=== PATIENT | female | born 1990 | race Caucasian/White ===

== ENCOUNTER 2017-07-08 04:35 | Emergency (ER) | payer MEDICAID ==
[~2017-07-08] VITALS: Ht 157.5 cm; Wt 81.6 kg
[2017-07-08] MEDS ORDERED: LORazepam 2 MG/ML VIAL ONE (04:41)
[2017-07-08] MEDS: NACL 0.9% 1,000 ML IV ONE ×2 (04:45→06:00)
[2017-07-08] MEDS: LORazepam 2 MG/ML VIAL IVP ONE ×2 (04:45→05:56)
[2017-07-08 04:53] VITALS: BP 130/79
[2017-07-08 04:56] LABS: BASOPHILS # (AUTO) 0.1 K/uL (0.00-0.22); BASOPHILS % (AUTO) 0.5 % (0.0-2.0); EOSINOPHILS # (AUTO) 0.1 K/uL (0-0.4); EOSINOPHILS % (AUTO) 0.4 % (0.0-4.0); HEMATOCRIT 42.1 % (36-48); HEMOGLOBIN 13.7 g/dL (12.0-16.0); LYMPHOCYTES # (AUTO) 2.6 K/uL (2.5-16.5); LYMPHOCYTES % (AUTO) 15.5 % (20.5-51.1); MEAN CORPUSCULAR HEMOGLOBIN 26 pg (27-31); MEAN CORPUSCULAR HGB CONC 33 g/dL (33-37); MEAN CORPUSCULAR VOLUME 79.7 fL (80-94); MONOCYTES # (AUTO) 1.3 K/uL (0.8-1.0); MONOCYTES % (AUTO) 7.5 % (1.7-9.3); NEUTROPHILS # (AUTO) 12.8 K/uL (1.8-7.7); NEUTROPHILS % (AUTO) 76.1 % (42.2-75.2); PLATELET COUNT (AUTO) 301 K/uL (140-450); RED BLOOD CELL COUNT(AUTO) 5.28 MIL/uL (4.20-5.40); RED CELL DISTRIBUTION WIDTH 16.4 % (11.6-13.7); WHITE BLOOD COUNT (AUTO) 16.7 K/uL (4.8-10.8)
[2017-07-08 05:30] LABS: ALBUMIN 3.9 g/dL (3.4-5.0); ANION GAP 14.9 (8-16); ASPARTATE AMINOTRANSFERASE 33 U/L (15-37); CARBON DIOXIDE 26.2 mmol/L (21-32); CHLORIDE 100 mmol/L (98-107); CREATININE 0.9 mg/dL (0.6-1.3); GFR ARICAN-AMERICAN 97 mL/min (>90); GLUCOSE 96 mg/dL (74-106); POTASSIUM 4.1 mmol/L (3.5-5.1); SODIUM SERUM 137 mmol/L (136-145); TOTAL BILIRUBIN 0.3 mg/dL (0.0-1.0); UREA NITROGEN, BLOOD 12 mg/dL (7-18)
[2017-07-08 05:36] LABS: ACETAMINOPHEN < 0.5 ug/ml (10-30); SALICYLATE < 2.8 mg/dL (2.8-20.0)
[2017-07-08 06:09] LABS: BARBITURATE, URINE NEG. ng/ml (NEG <=200); BENZODIAZEPINE, URINE NEG. ng/mL (NEG <=200); CANNABINOID, URINE NEG. ng/mL (NEG <=50); COCAINE, URINE NEG. ng/mL (NEG <=300); OPIATE, URINE NEG. ng/mL (NEG <=2000); PHENCYCLIDINE SCREEN,URINE NEG. ng/mL (NEG <=25)
[2017-07-08 06:50] VITALS: BP 123/82
== END 2017-07-08 06:50 | disposition home or self-care (01) ==
LOC: MED 04:35
DX: F15.10 Other stimulant abuse, uncomplicated (principal); R03.0 Elevated blood-pressure reading, without diagnosis of hypertension
CPT/HCPCS: 36415; 80053; 80305; 85025; 93005; 96361; 96374; 96376; 99285; C1758; G0480; G0482; J2060

== ENCOUNTER 2019-01-19 12:22 | Emergency (ER) | payer OTHER ==
[~2019-01-19] VITALS: Ht 154.9 cm; Wt 72.6 kg
[2019-01-19 12:31] VITALS: BP 123/101
--- NOTE | 2019-01-19 12:38 | NUR ---
28/F TO ED FOR OKAY TO BOOK. MEDICAL CLEARANCE NEEDED DUE TO ELEVATED HR AT FACILITY. HR AT THIS TIME 124, HYPERTENSIVE AT 128/101. DENIES ANY MEDICAL COMPLAINT.
[2019-01-19] MEDS ORDERED: LORazepam 1 MG TAB PO ONE (13:15)
--- NOTE | 2019-01-19 13:58 | NUR ---
PT HR 127. LEONORD MADE AWARE.
--- NOTE | 2019-01-19 14:40 | NUR ---
RN TOOK MANUAL RADIAL PULSE 119. ERMD MADE AWARE
--- NOTE | 2019-01-19 14:52 | NUR ---
PATIENT BIB [employer]. PATIENT EXAMINED BY DR. MEJIA. PATIENT MEDICALLY CLEARED AND RELEASED IN CUSTODY IN STABLE CONDITION. ORIGINAL PRE-BOOK FORM GIVEN TO OFFICER LAKEISHA TADEO #[id number].
[2019-01-19 14:57] VITALS: BP 144/96
== END 2019-01-19 14:52 ==
LOC: MED 12:22
DX: R00.0 Tachycardia, unspecified (principal); R03.0 Elevated blood-pressure reading, without diagnosis of hypertension; F10.10 Alcohol abuse, uncomplicated; Y90.9 Presence of alcohol in blood, level not specified; Z02.89 Encounter for other administrative examinations
CPT/HCPCS: 99283

== ENCOUNTER 2021-07-12 23:06 | Inpatient (IN) | payer OTHER ==
[~2021-07-12] VITALS: Ht 157.5 cm; Wt 60.9 kg
[2021-07-12 23:08] VITALS: BP 125/88
[2021-07-12] MEDS ORDERED: INTUBATION KIT MC ONE (23:19)
--- NOTE | 2021-07-12 23:24 | NUR ---
ERMD AND RT BEDSIDE FOR INTUBATION
[2021-07-12] MEDS ORDERED: ETOMIDATE 20 MG/10 ML VIAL IVP ONE (23:30)
[2021-07-12] MEDS ORDERED: NACL 0.9% 1,000 ML IV ONE (23:30)
[2021-07-12] MEDS ORDERED: SUCCINYLCHOLINE CHLORIDE 200 MG/10 ML VIAL IVP ONE (23:30)
[2021-07-12] MEDS ORDERED: PROPOFOL 200 MG/20 ML VIAL IV ONE ×2 (23:30→23:40)
[2021-07-12 23:39] LABS: BASOPHILS # (AUTO) 0.1 K/uL (0.00-0.22); BASOPHILS % (AUTO) 0.6 % (0.0-2.0); EOSINOPHILS # (AUTO) 0.1 K/uL (0-0.4); EOSINOPHILS % (AUTO) 0.6 % (0.0-4.0); HEMATOCRIT 43.7 % (36-48); HEMOGLOBIN 14.3 g/dL (12.0-16.0); LYMPHOCYTES # (AUTO) 2.5 K/uL (2.5-16.5); LYMPHOCYTES % (AUTO) 22.6 % (20.5-51.1); MEAN CORPUSCULAR HEMOGLOBIN 26 pg (27-31); MEAN CORPUSCULAR HGB CONC 33 g/dL (33-37); MEAN CORPUSCULAR VOLUME 79.4 fL (80-94); MONOCYTES # (AUTO) 0.8 K/uL (0.8-1.0); MONOCYTES % (AUTO) 7.3 % (1.7-9.3); NEUTROPHILS # (AUTO) 7.8 K/uL (1.8-7.7); NEUTROPHILS % (AUTO) 68.9 % (42.2-75.2); PLATELET COUNT (AUTO) 249 K/uL (140-450); RED CELL DISTRIBUTION WIDTH 15.3 % (11.6-13.7); WHITE BLOOD COUNT (AUTO) 11.3 K/uL (4.8-10.8)
[2021-07-12] MEDS ORDERED: PROPOFOL 1000 MG/100 ML PREMIX 100 ML IV ONE (23:41)
--- NOTE | 2021-07-12 23:52 | NUR ---
CALLED TO BEDSIDE FOR INTUBATION ASSIST PT WAS INTUBATED W/ 7.5 ETT SECURED @ 23CM BILAT BS, COLOR CHANGE ON EZ CAP, CONDESATION PRESENT IN ETT, AND CXR OBTAINED PENDING INTERP FOR TUBE PLACEMENT PT PLACED ON AC/VC 400 +[address] NO PEEP AT THIS TIME
[2021-07-12 23:58] VITALS: BP 128/83
[2021-07-13] VITALS (17 sets, daily range): BP systolic 128–179; BP diastolic 48–91
[2021-07-13 00:04] LABS: ALBUMIN 3.5 g/dL (3.4-5.0); ANION GAP 16.3 (8-16); CARBON DIOXIDE 23.2 mmol/L (21-32); CREATININE 0.4 mg/dL (0.6-1.3); POTASSIUM 4.5 mmol/L (3.5-5.1); TOTAL BILIRUBIN 0.1 mg/dL (0.0-1.0)
--- NOTE | 2021-07-13 00:06 | NUR ---
# 16 FR Easley catheter with 10 ml utilizing sterile technique. Immediate return of 25 ml light yellow, clear, no foul odor of urine noted. Bedside drainage bag placed below level of bladder. Urine sample collected and sent to lab. Pt tolerated procedure well.
[2021-07-13] MEDS ORDERED: FAMOTIDINE 20 MG/2 ML VIAL IVP ONE (00:10)
--- NOTE | 2021-07-13 00:19 | NUR ---
to CT with amado, rn, rt, Acls transport.
[2021-07-13] MEDS ORDERED: MIDAZOLAM MDV 50 MG in NACL 0.9% 40 ML IV ONE (01:00)
[2021-07-13 01:07] LABS: BARBITURATE, URINE NEGATIVE ng/ml (NEG <=200); BENZODIAZEPINE, URINE NEGATIVE ng/mL (NEG <=200); CANNABINOID, URINE NEGATIVE ng/mL (NEG <=50); COCAINE, URINE NEGATIVE ng/mL (NEG <=300); OPIATE, URINE NEGATIVE ng/mL (NEG <=2000); PHENCYCLIDINE SCREEN,URINE NEGATIVE ng/mL (NEG <=25)
--- NOTE | 2021-07-13 01:09 | NUR ---
PT TRANSPORTED TO CT AND BACK TO ED 7 W/ NO COMPLICATIONS OR ADVERSE EVENTS PT TOLERATED TRANSPORT WELL VENT PLUGGED INTO RED OUTLET W/ ALARMS ON AND AUDIBLE AMBU WAS REPLACED AT BEDSIDE ABG PERFORMED UPON ARRIVAL BACK TO ED AND RESULTS WERE PRESENTED TO DR FIO2 WAS TITRATED TO 28% PT TOLERATING WELL AT THIS TIME W/ SPO2 100% 5 POST TITRATION WILL CONTINUE TO MONITOR AND TITRATE TOLERATED
[2021-07-13] MEDS ORDERED: PROPOFOL 200 MG/20 ML VIAL IV ONE (01:20)
[2021-07-13] MEDS ORDERED: PROPOFOL 1000 MG/100 ML PREMIX 100 ML IV ONE ×4 (01:25→11:59)
[2021-07-13] MEDS ORDERED: MIDAZOLAM MDV 50 MG/10 ML VIAL IV ONE ×2 (01:40→17:50)
--- NOTE | 2021-07-13 01:43 | NUR ---
PT BEGAN TO AWAKE, TRIED TO PULL OUT ET TUBE. PT CALMED VERBALLY, PROPOFOL INCREASED TO 20MCG/KG/MIN.
[2021-07-13] MEDS ORDERED: FAMOTIDINE 20 MG/2 ML VIAL ONE ×2 (02:11→02:12)
[2021-07-13] MEDS ORDERED: ONDANSETRON 4 MG/2 ML VIAL IVP PRN ×2 (04:10→14:55)
[2021-07-13] MEDS ORDERED: ACETAMINOPHEN 325 MG TAB PO PRN (04:10)
--- NOTE | 2021-07-13 04:37 | NUR ---
PTS MOTHER GAVE VERBAL PERMISSION TO HAVE PTS BROTHER ACCESS TO HER INFORMATION. BROTHERS NAME IS VEL. HIS NUMBER IS [phone]
--- NOTE | 2021-07-13 05:45 | NUR ---
PT TRANSPORTED FROM ED TO ICU 5 WITH NO ADVERSE EVENTS PT TOLERATED TRANSPORT WELL VENT PLUGGED INTO RED OUTLET WITH ALARMS ON AND AUDIBLE AMBU PLACED AT BEDSIDE WILL CONTINUE TOP MONITOR
--- NOTE | 2021-07-13 06:00 | NUR ---
Patient will be admitted to [facility]. Admited to ICU. Will go to room 5. Belongings list completed. Report to MILLICENT.
--- NOTE | 2021-07-13 06:30 | NUR ---
Paged to inform of patient's condition. Per ED patient had EBL from OG tube @ 700cc. Patient abdoment soft, to palpation. Patient noted with tachycardia and fever. Paged to clarify diet order, and to request prn rx for fever of 100.3. Patient cooling measures in place. Patient remains on EET and on Propofol and Versed drip. Bed locked and in lowest position. patient remains on telemetry monitor.
--- NOTE | 2021-07-13 06:36 | NUR ---
PATIENT HAS BEEN SCREENED AND CATEGORIZED LOW NUTRITION RISK. PATIENT WILL BE SEEN WITHIN 7 DAYS OF ADMISSION. 07/20/21 GENNY DUNBAR MS, RDN
--- NOTE | 2021-07-13 07:20 | NUR ---
REPORT RECEIVED FROM MINE INSPECTOR RN.
--- NOTE | 2021-07-13 07:45 | NUR ---
PATIENT SPONTANEOUSLY OPENED EYES. FOLLOWED COMMANDS AND SQUEEZED TO COMMAND WITH LEFT HAND. PUPILS 4MM AND REACTIVE TO LIGHT BILATERALLY. SKIN INTACT. SMALL AREA OF ECCYMOTIC SCRATCHES ON LEFT HIP. HEART SOUNDS REGULAR. MONITOR WITH ST AT 125. PULSES BOUNDING. DP AND PT PALAPABLE WITH NO EDEMA NOTED. NECK MASS NOTED MIDLINE TO SLIGHT RIGHT FIRM. ANTERIOR/LATERAL LUNG SOUNDS CLEAR. BILATERALLY. SAO2 99%. ETT TO VENT AC/VC FIO2 .24/ VT 400/ RATE 18/ PEEP 0. ORAL GASTRIC TUBE IN PLACE. FLEX OF COFFEE GROUND COLORED FLUID NOTED IN TUBE. ACTIVE BOWEL SOUNDS. ABDOMEN SOFT. OG PLACED TO LIS WITH SMALL AMOUNT OF COFFEE GROUND DRAINAGE NOTED. HUDDLESTON IN PLACE WITH CLEAR YELLOW URINE. PROPOFOL AT 50MCG/KG/MIN TO LEFT HAND, VERSED AT 6MG/HR TO RIGHT HAND.
--- NOTE | 2021-07-13 08:24 | NUR ---
PATIENT HAS BEEN SCREENED AND CATEGORIZED HIGH NUTRITION RISK D/T NEWLY RECEIVED FNS REFERRAL. PATIENT WILL BE SEEN WITHIN 1-2 DAYS OF ADMISSION. 07/13/21-07/14/21 GENNY DUNBAR MS, RDN
--- NOTE | 2021-07-13 09:00 | NUR ---
PATIENT AWAKE, ANXIOUS ATTEMPTING TO PULL AT LINES. VERSED INCREASED TO 8MG/HR.
--- NOTE | 2021-07-13 09:30 | NUR ---
RIGHT HAND IV DISLODGED. #20 GAUGE STARTED IN RIGHT FOREARM WITHOUT DIFFICULTY.
--- NOTE | 2021-07-13 10:00 | NUR ---
PATIENT AWAKE. REQUESTED BACK OF VERSED FROM PHARMACY. PATIENT AWAKE, KICKING, ATTEMPTING TO TALK. ATTEMPTED TO PULL AT ETT. DR. MAHMOOD CALLED AND ORDER FOR FENTANYL RECEIVED. REQUESTED CONSULT FOR DR. HURLEY. DR. HURLEY PAGED.
[2021-07-13] MEDS: MORPHINE SULFATE 2 MG/ML SYR IVP PRN (10:24)
--- NOTE | 2021-07-13 10:30 | NUR ---
ORDER RECEIVED FOR IVF'S NS AT 125ML/HR. NS STARTED TO RIGHT FA.
[2021-07-13] MEDS: NACL 0.9% 1,000 ML IV SCH (11:19)
[2021-07-13] MEDS ORDERED: fentaNYL citrate 1 MG in NACL 0.9% 80 ML IV PRN (11:40)
--- NOTE | 2021-07-13 12:03 | NUR ---
(07/13/21) RD INITIAL ASSESSMENT COMPLETED PLEASE REFER TO NUTRITION ASSESSMENT UNDER CARE ACTIVITY FOR ESTIMATED NUTRITIONAL NEEDS. RD RECOMMENDATIONS: 1. CONTINUE NPO MEDICALLY APPROPRIATE. 2. IF PT IS ABLE TO START PO DIET, START REGULAR DIET. 3. IF PT IS NOT ABLE TO START PO DIET, CONSIDER ALTERNATE ROUTE OF NUTRITION SUCH TF OR PPN/TPN. 3. CONSULT RDN PRN. 4. RD WILL F/U 2-3 DAYS; HIGH RISK. GENNY DUNBAR MS, RDN
--- NOTE | 2021-07-13 12:30 | NUR ---
DR. HURLEY AT BEDSIDE. SPOKE WITH PATIENTS FATHER USING COMMUNITY SERVICE AIDE TUCK POINTER. FATHER STATED PATIENT HAS BEEN TALKING AND RESPONDING TO VOICES. PATIENT WAS TO SEE OUTPATIENT PSYCH BUT DID NOT COMPLETE THIS VISIT. STATED PATIENT WAS IN REHAB IN [facility]. PATIENT OPENS HER EYES TO VERBAL STIMULI. CALM AT THIS TIME.
[2021-07-13] MEDS ORDERED: MULTIVITAMIN-12 10 ML, FOLIC ACID 1 MG in DEXTROSE 5% 1,000 ML IV ONE (15:05)
[2021-07-13] MEDS ORDERED: THIAMINE 200 MG/2 ML VIAL IM ONE (15:05)
[2021-07-13] MEDS ORDERED: MAG SULF 2000 MG/WATER PREMIX 50 ML IV ONE (15:05)
[2021-07-13] MEDS: PANTOPRAZOLE 40 MG INJ VIAL IVP SCH (15:51)
--- NOTE | 2021-07-13 16:00 | NUR ---
#18 GAUGE PLACED IN LEFT FA WITHOUT DIFFICULTY. VITAMIN INFUSION STARTED AT 100ML/HR. ANTIBIOTICS STARTED. FENTANYL STARTED AT .5MCG/KG/HR.
--- NOTE | 2021-07-13 16:07 | NUR ---
SEDATED RESTING WELL BREATH SOUNDS DIFFUSED RHONCHI BILATERAL ENDOTRACHEAL SUCTION FOR MODERATE HICK WITH BLOOD TINGE SECRETIONS AIRWAY PATENT; SPECIMEN COLLECTED FOR VAP PROTOCOL; SAMPLE FORWARDED TO LAB
[2021-07-13 16:12] LABS: FREE T4 (FREE THYROXINE) 4.71 ng/dL (0.76-1.46); THYROID STIMULATING HORMONE < 0.01 uIU/mL (0.34-3.74)
[2021-07-13] MEDS: MIDAZOLAM MDV 50 MG in NACL 0.9% 40 ML IV PRN (17:57)
--- NOTE | 2021-07-13 19:20 | NUR ---
REPORT GIVEN TO LAKESHA SMITH.
--- NOTE | 2021-07-13 19:50 | NUR ---
PATIENT CURRENTLY SEDATED WITH FENTANYL, PROPOFOL, AND VERSED. INTUBATED. PATIENT HOT TO THE TOUCH, TOOK A TEMPERATURE ORALLY WITH 100.9 FEVER. PROVIDED COOLING MEASURES WITH WET RAGS, BLANKET TAKEN OFF, AND WILL PROVIDE TYLENOL VIA OG TUBE. FLUSHABLE OF 10ML SALINE THROUGH ALL IV SITES- NO REDNESS, SWELLING, INFILTRATION, PATENT TUBING.
[2021-07-13] MEDS: CLONIDINE HYDROCHLORIDE 0.1 MG TAB PO SCH (21:16)
[2021-07-13] MEDS: PROPOFOL 1000 MG/100 ML PREMIX 100 ML IV PRN (21:22)
[2021-07-14] VITALS (19 sets, daily range): BP systolic 106–163; BP diastolic 54–93
[2021-07-14] MEDS ORDERED: MIDAZOLAM MDV 50 MG/10 ML VIAL IV ONE (00:52)
--- NOTE | 2021-07-14 01:22 | NUR ---
PROVIDED COOLING MEASURES ON PATIENT- COLD RAG ON FOREHEAD. PATIENT TOLERATED WELL.
[2021-07-14] MEDS: MIDAZOLAM MDV 50 MG in NACL 0.9% 40 ML IV PRN (01:24)
[2021-07-14] MEDS: NACL 0.9% 1,000 ML IV SCH ×4 (02:09→19:41)
[2021-07-14] MEDS: PROPOFOL 1000 MG/100 ML PREMIX 100 ML IV PRN ×2 (02:10→21:46)
--- NOTE | 2021-07-14 02:17 | NUR ---
PATIENT SUCTIONED THROUGH THE MOUTH- TOLERATED WELL.
--- NOTE | 2021-07-14 04:00 | NUR ---
CHANGED EDDIE PADS FOR PATIENT AND PROVIDED ORAL CARE- PATIENT TOLERATED WELL.
[2021-07-14] MEDS: CLONIDINE HYDROCHLORIDE 0.1 MG TAB PO SCH ×3 (05:06→21:18)
[2021-07-14 05:40] LABS: ALBUMIN 2.5 g/dL (3.4-5.0); ANION GAP 12.2 (8-16); CREATININE 0.4 mg/dL (0.6-1.3); PHOSPHORUS 4.3 mg/dL (2.5-4.9); POTASSIUM 3.2 mmol/L (3.5-5.1); TOTAL BILIRUBIN 0.7 mg/dL (0.0-1.0)
[2021-07-14 05:53] LABS: EOSINOPHILS # (AUTO) 0.1 K/uL (0-0.4); EOSINOPHILS % (AUTO) 0.5 % (0.0-4.0); HEMATOCRIT 34.3 % (36-48); HEMOGLOBIN 11.2 g/dL (12.0-16.0); LYMPHOCYTES # (AUTO) 2.1 K/uL (2.5-16.5); LYMPHOCYTES % (AUTO) 13.9 % (20.5-51.1); MEAN CORPUSCULAR HEMOGLOBIN 27 pg (27-31); MEAN CORPUSCULAR HGB CONC 33 g/dL (33-37); MEAN CORPUSCULAR VOLUME 81.6 fL (80-94); MONOCYTES # (AUTO) 2.5 K/uL (0.8-1.0); MONOCYTES % (AUTO) 16.9 % (1.7-9.3); NEUTROPHILS # (AUTO) 10.3 K/uL (1.8-7.7); NEUTROPHILS % (AUTO) 68.7 % (42.2-75.2); PLATELET COUNT (AUTO) 187 K/uL (140-450); RED BLOOD CELL COUNT(AUTO) 4.21 MIL/uL (4.20-5.40)
--- NOTE | 2021-07-14 07:19 | NUR ---
RECEIVED REPORT FROM LAKESHA SMITH. TRANSFER OF CARE AT THIS TIME.
--- NOTE | 2021-07-14 07:36 | NUR ---
PT IN BED WITH HOB ELEVATED, SEDATED RASS-3. ET TUBE TO VENT SETTINGS AC VC VT 400 RATE 18 PEEP 0 FIO2 @ 24%. SATURATING WELL, BREATHING EVEN AND UNLABORED. SINUS TACH ON MONITOR. HUDDLESTON CATHETER DRAINING TO BSD. IV TO L AC 18G LUMEN INTACT AND INFUSING PROPOFOL @ 55MCG/KG/MIN. IV TO R FA 20G LUMEN INTACT AND INFUSING NS @ TKO. IV TO LEFT HAND 20G SL. PT KEPT CLEAN DRY AND COMFORTABLE. SAFETY PRECAUTIONS IN PLACE.
[2021-07-14] MEDS: PANTOPRAZOLE 40 MG INJ VIAL IVP SCH (10:51)
[2021-07-14] MEDS ORDERED: POTASSIUM CHLORIDE 20% 40 MEQ/15 ML UDC NG ONE (11:00)
--- NOTE | 2021-07-14 11:06 | NUR ---
DR. HURLEY AT PT BEDSIDE FOR FURTHER EVALUATION. PRECEDEX TO BE STARTED AFTER WEANING PT DOWN FROM PROPOFOL, FENTANYL, AND VERSED. PT TO BE ON C-PAP TRIALS AND PRECEDEX STARTED.
--- NOTE | 2021-07-14 11:13 | NUR ---
PT MOTHER AT PT BEDSIDE, PT CARE EXPLAINED AT THIS TIME.
[2021-07-14] MEDS: methIMAzole 5 MG TAB NG SCH ×2 (12:43→16:38)
[2021-07-14] MEDS ORDERED: MIDAZOLAM MDV 100 MG in NACL 0.9% 80 ML IV PRN (13:15)
--- NOTE | 2021-07-14 13:30 | NUR ---
RECEIVED ON A [employer] R860 VENTILATOR PLUGGED INTO RED OUTLET TOLERATING WELL WITHOUT COMPLICATIONS NOTED TO ENDOTRACHEAL TUBE #7.5 SECURED AT 23cm TEETH/GUM LINE WITH AN ANCHOR FAST CUFF PRESSURE CHECKED NOTED AMBU BAG AT BEDSIDE SEDATED RESTING WELL GOOD CHEST RISE ENDOTRACHEAL TUBE SUCTION FOR LARGE THICK YELLOW SECRETIONS AIRWAY PATENT
--- NOTE | 2021-07-14 15:50 | NUR ---
NO APPARENT DISTRESS NOTED EQUAL CHEST RISE GOOD AERATION THROUGHOUT BILATERAL LUNG MCINTOSH AIRWAY PATENT
[2021-07-14] MEDS: DEXMEDETOMIDINE HCL 400 MCG in NACL 0.9% 96 ML IV PRN (16:43)
--- NOTE | 2021-07-14 19:30 | NUR ---
GAVE REPORT TO ARNEL, ENGINE ROOM OPERATOR. TRANSFER OF CARE AT THIS TIME.
[2021-07-14] MEDS: MORPHINE SULFATE 2 MG/ML SYR IVP PRN (21:19)
[2021-07-15] VITALS (20 sets, daily range): BP systolic 102–141; BP diastolic 50–77
--- NOTE | 2021-07-15 00:38 | NUR ---
PATIENT SEDATED ON PROPOFOL AT 28 MCG 28 ML HOUR AND ON VERSED 2.5 MG, AND PRECEDEX 0.2 MCG /KG/HOUR. NS INFUSING AT 125 HOUR. PATIENT IS WITH ET-TUBE AC/VC RATE 18, TV 400, FI02 24%, AND PEEP OFF. SAT 99% LUNGS DIMINISH TEMP 98.4 WAS HAVING SOME WITH DRAWAL WAS GIVEN MORPHINE 2 MG IVP AT 2119 FATHER AT BED SIDE. PATIENT HAS A F/C DRAINING 200CC AROUND 2200. PATIENT HAS WRIST RESTRAINTS ON BOTH WRIST. NO DISTRESS NOTED BOTH EYES PINPOINT.
[2021-07-15] MEDS: NACL 0.9% 1,000 ML IV SCH ×3 (04:24→21:45)
[2021-07-15] MEDS: PROPOFOL 1000 MG/100 ML PREMIX 100 ML IV PRN ×3 (04:29→20:30)
[2021-07-15] MEDS: CLONIDINE HYDROCHLORIDE 0.1 MG TAB PO SCH ×3 (05:00→21:00)
[2021-07-15] MEDS: MORPHINE SULFATE 2 MG/ML SYR IVP PRN (05:30)
--- NOTE | 2021-07-15 07:26 | NUR ---
RECEIVED REPORT FROM IRIS, COMPUTER OPERATIONS SPECIALIST. TRANSFER OF CARE A THIS TIME.
--- NOTE | 2021-07-15 07:45 | NUR ---
PT IN BED WITH HOB ELEVATED, SEDATED RASS-3. ET TUBE TO VENT SETTINGS AC VC VT 400 RATE 18 PEEP 0 FIO2 @ 24%. SATURATING WELL, BREATHING EVEN AND UNLABORED. NORMAL SINUS RYTHYM ON MONITOR. HUDDLESTON CATHETER DRAINING TO BSD. IV TO L AC 18G LUMEN INTACT AND INFUSING PROPOFOL @ 28MCG/KG/MIN. IV TO R FA 20G LUMEN INTACT AND INFUSING VERSED 2.5MG/HR, AND PRECEDEX 0.2MCG/KG/HR, NS @ 125. IV TO LEFT HAND 20G SL. PT KEPT CLEAN DRY AND COMFORTABLE. SAFETY PRECAUTIONS IN PLACE.
[2021-07-15] MEDS: methIMAzole 5 MG TAB NG SCH ×3 (09:33→17:15)
[2021-07-15] MEDS: PANTOPRAZOLE 40 MG INJ VIAL IVP SCH (09:34)
--- NOTE | 2021-07-15 12:44 | NUR ---
(07/15/21) RD FOLLOW UP COMPLETED PLEASE REFER TO NUTRITION PROGRESS NOTE UNDER CARE ACTIVITY FOR ESTIMATED NUTRITION NEEDS. RD RECOMMENDATIONS: 1. CONTINUE CURRENT ENTERAL FEEDING: VITAL AF 1.2 AT 50 ML/HR WITH FWF 50 Q8H (150 ML) VIA NGT. THIS PROVIDES 1200 ML TOTAL VOLUME, 1440 KCAL, 90 GM PROTEIN, AND 973 ML FREE WATER (1123 ML FREE WATER TOTAL). THIS MEETS 91% EST KCAL NEEDS AND 84% EST PROTEIN NEEDS; ADEQUATE. 2. RD WILL F/U 2-3 DAYS; HIGH RISK. GENNY DUNBAR, MS, RDN
--- NOTE | 2021-07-15 17:09 | NUR ---
PT REMAINS ON DOCUMENTED VENT SETTINGS NO CHANGES AT THIS TIME. PT SEDATED NOT IN ANY DISTRESS. VENT ALARMS REMAIN ON AND FUNCTIONING. ETT IS SECURE WITH A PATENT AIRWAY.
--- NOTE | 2021-07-15 19:43 | NUR ---
GAVE REPORT TO IRIS, SERVICE DELIVERY SUPERVISOR. TRANSFER OF CARE AT THIS TIME.
[2021-07-15] MEDS: DEXMEDETOMIDINE HCL 400 MCG in NACL 0.9% 96 ML IV PRN ×2 (20:30→23:00)
--- NOTE | 2021-07-15 22:59 | NUR ---
PATIENT SEDATED ON PROPOFOL AND PRECEDEX 1.2 MCG/KG/HR.PROPOFOL AT 24 MCG, NS AT 125 HR.PATIENTS PUPILS PINPOINT SLUGGISH. HAS OGT TUBE RECEIVING VITAL AT 30 HOUR. 2000 RESIDUAL 200CC. LUNGS DIMINISH TO LISTEN. TEMP 98.9 SINUS ON MONITOR. HAS F/C DRAINING VICK URINE.NO DISTRESS NOTED.
[2021-07-16] VITALS (22 sets, daily range): BP systolic 118–163; BP diastolic 46–96
[2021-07-16] MEDS: PROPOFOL 1000 MG/100 ML PREMIX 100 ML IV PRN ×2 (01:50→06:25)
[2021-07-16] MEDS ORDERED: DEXMEDETOMIDINE HCL 100 MCG/ML 2 ML VIAL IV ONE (03:53)
[2021-07-16] MEDS: DEXMEDETOMIDINE HCL 400 MCG in NACL 0.9% 96 ML IV PRN ×2 (05:25→22:25)
[2021-07-16] MEDS: CLONIDINE HYDROCHLORIDE 0.1 MG TAB PO SCH ×3 (05:26→21:15)
[2021-07-16 05:35] LABS: ALBUMIN 1.9 g/dL (3.4-5.0); ANION GAP 9.8 (8-16); CARBON DIOXIDE 26.6 mmol/L (21-32); CREATININE 0.2 mg/dL (0.6-1.3); MAGNESIUM 1.7 mg/dL (1.8-2.4); POTASSIUM 3.4 mmol/L (3.5-5.1); TOTAL BILIRUBIN 0.3 mg/dL (0.0-1.0)
[2021-07-16] MEDS: NACL 0.9% 1,000 ML IV SCH ×3 (05:40→11:45)
[2021-07-16 06:26] LABS: BASOPHILS % (AUTO) 0.2 % (0.0-2.0); EOSINOPHILS # (AUTO) 0.2 K/uL (0-0.4); EOSINOPHILS % (AUTO) 1.8 % (0.0-4.0); HEMATOCRIT 34.1 % (36-48); HEMOGLOBIN 11.1 g/dL (12.0-16.0); LYMPHOCYTES # (AUTO) 1.9 K/uL (2.5-16.5); LYMPHOCYTES % (AUTO) 18.7 % (20.5-51.1); MEAN CORPUSCULAR HEMOGLOBIN 26 pg (27-31); MEAN CORPUSCULAR HGB CONC 32 g/dL (33-37); MEAN CORPUSCULAR VOLUME 81.3 fL (80-94); MONOCYTES # (AUTO) 1.3 K/uL (0.8-1.0); MONOCYTES % (AUTO) 13.2 % (1.7-9.3); NEUTROPHILS # (AUTO) 6.6 K/uL (1.8-7.7); NEUTROPHILS % (AUTO) 66.1 % (42.2-75.2); PLATELET COUNT (AUTO) 208 K/uL (140-450); RED CELL DISTRIBUTION WIDTH 14.8 % (11.6-13.7)
--- NOTE | 2021-07-16 07:30 | NUR ---
REPORT RECEIVED ARNEL RN PT. HAS ETT TO VENT 24% FIO2 TV 400 O2 SAT 100% AT THE TIME IV HAS#20 ONRT ACINFUSSING PRECIDEX AT 1.2/KG/HR AND NS AT 125ML/HE . ON LEFT AC HAS# 18 INFUSING PROPOFOL AT 24MCG/HR.OGTUBE FEEDING IN PROGRESS. HUDDLESTON CATH DRAIN CLEAR YELLOW URINE.
--- NOTE | 2021-07-16 07:40 | NUR ---
RECEIVED ON A [employer] R860 VENTILATOR PLUGGED INTO RED OUTLET TOLERATING WELL WITHOUT COMPLICATIONS NOTED TO AN ENDOTRACHEAL TUBE #7.5 SECURED AT 23cm TEETH/GUM LINE WITH AN ANCHOR FAST CUFF PRESSURE CHECKED NOTED AMBU BAG AT BEDSIDE ENDOTRACHEAL TUBE SUCTION FOR MODERATE SEMI THICK PALE YELLOW SECRETIONS AIRWAY PATENT SPUTUM SPECIMEN SAMPLE OBTAINED FORWARDED TO LAB
--- NOTE | 2021-07-16 07:51 | NUR ---
SPUTUM COLLECTED FOR C/S.
[2021-07-16] MEDS: chlordiazePOXIDE 25 MG CAP PO SCH ×2 (09:00→21:00)
[2021-07-16] MEDS: methIMAzole 5 MG TAB NG SCH ×3 (09:00→13:32)
[2021-07-16] MEDS: PANTOPRAZOLE 40 MG INJ VIAL IVP SCH (09:00)
--- NOTE | 2021-07-16 09:00 | NUR ---
DR. ABRAHAM HURLEY AT BEDSIDE ASSESSING PATIENT ACCOUNT MANAGER B2B AND RN AT BEDSIDE HOLLY HURLEY: TURN OFF PROPOFOL; PRECEDEX CURRENTLY RUNNING AT 1.3mcg ADJUST NECESSARY; START CPAP TRIALS IF DOING GOOD BY 1000am EXTUBATE PATIENT; NO ABG REQUIRED ON CPAP TRIAL
--- NOTE | 2021-07-16 09:05 | NUR ---
STABLE GOOD CHEST RISE ENDOTRACHEAL SUCTION FOR LARGE THI YELLOW SECRETIONS AIRWAY PATENT; PLACED ON CPAP TRIAL NOTED; REFERENCE PHYSICAL SCIENCE PROFESSOR NOTES AT 0900; ISHA/INSULATION NOZZLEMAN NOTIFIED
--- NOTE | 2021-07-16 09:23 | NUR ---
CABLE FORMER CALLED TO BEDSIDE AT THIS TIME BY ISHA/TELE GROUT SEWER LINE REPAIRER; PATIENT PRESENTING WITH 90% SELF EXTUBATION; REMOVED ENDOTRACHEAL TUBE ALONG WITH OROGASTIC TUBE; OROPHARYNGEAL SUCTION FOR COPIOUS SEMI THICK YELLOW/HAZY SECRETIONS; PLACED ON HUMIDIFIED SUPPLEMENTAL OXYGEN AT 2 LPM VIA NC
--- NOTE | 2021-07-16 09:28 | NUR ---
CALLED DR. ABRAHAM HURLEY AT [facility] [phone] YEN/EXCHANGE TO PAGE ZAINABIONED MD RETURN PHONE NUMBER AND PATIENT INFORMATION GIVEN
--- NOTE | 2021-07-16 09:31 | NUR ---
CALL BACK FROM RA HURLEY REVIEWED PATIENT SELF EXTUBATION; LOC WITH NO SUSTAINED SHORTNESS OF BREATH; GOOD CHEST RISE; STRONG PRODUCTIVE COUGH WITH OROPHARYNGEAL SUCTIONING FOR COPIOUS THICK PALE YELLOW/HAZY SECRETIONS; IMPLEMENTATION OF SUPPLEMENTAL OXYGEN AT 2 LPM VIA NC WITH SATURATION AT 95%-96% Addendum: 07/16/21 at 1501 by Marciano Mcgovern RT ; =
--- NOTE | 2021-07-16 10:00 | NUR ---
PT MOTHER AT BED SIDE , PT REMAIN AWAKE AND CONFUSED ,GIVE SOME ICE CHIP.
--- NOTE | 2021-07-16 12:00 | NUR ---
PT, IS AWAKE AIERT AND CONFUSE AFTER EXTUBATED/
--- NOTE | 2021-07-16 12:22 | NUR ---
DC PLANN[age] YRS OLD FEMALE PATIENT WAS ADMITTED FROM HOME WITH A DX OF ALCOHOL INTOXICATION. PATIENT HAS A HX OF ASTHMA ,DRUG AND ALCOHOL ABUSE. PATIENT INTUBATED SEDATED. CXR SHOWED LEFT BASILAR DISEASE QUESTION ATELECTASIS/INFILTRATE. CT HEAD NEGATIVE. ON PROPOFOL, PRECEDEX, FENTANYL AND VERSED. IVF AND IV ABX ROCEPHIN. CONSULTED WITH CRITICAL CARE PULMO. DC PLAN PER PATIENT RESPOND TO THE TREATMENT. CM TO FOLLOW Addendum: 07/17/21 at 1233 by Shirin Rossi RN DC PLANNING: PATIENT SELF EXTUBATED ON HIGH FLOW 25L/NC FIO2 40% CONTINUE IVF AND IV ABX ROCEPHIN . DC PLAN TO DOWNGRADE TO TELE. CM TO FOLLOW
--- NOTE | 2021-07-16 19:30 | NUR ---
RECEIVED PATIENT ON BED ALERT BUT SOMEWHAT CONFUSED, TRIES TO GO DOWN FROM THE BED. VENTILATING ON 2 LITERS / S02 90%.PATIENT WAS JUST EXTUBATED TODAY IN THE DAY SHIFT ENDORSED. CARDIACSCOPE SHOWS ON SINUS RHYTHM HR 87/MIN NO ARRHYTHMIAS SEE. COMMENCINGON IV NORMAL SALINE AT 125 ML/HR VIA G20 IV CANNULA ON RIGHT ARM AND ON PRECEDEX DRIP 1.2 MCG/KG/HR. ABDOMEN IS SOFT NON TENDER, ACTIVE BOWEL SOUNDS.WITH HUDDLESTON CATH IN PLACE, DRAINING TO CLEAR YELLOW URINE OUTPUT, INTACT.
--- NOTE | 2021-07-16 19:30 | NUR ---
REPORT GIVE TO KEMAL CROWDER FOR CONTINUE DARE.
[2021-07-16] MEDS ORDERED: LORazepam 2 MG/ML VIAL IM/IVP PRN (19:40)
[2021-07-16] MEDS ORDERED: MAG SULF 2000 MG/WATER PREMIX 50 ML IV SCH (19:45)
--- NOTE | 2021-07-16 20:00 | NUR ---
WITH BOUTS OF DIARRHEA NOTED; PATIENT WAS ABLE TO SIT ON A BEDSIDE COMMODE.
--- NOTE | 2021-07-16 20:30 | NUR ---
VISITED BY THE PATIENT'S MOTHER, UPDATED ON PATIENT'S MEDICAL CONDITION.
--- NOTE | 2021-07-16 22:00 | NUR ---
O2 TITRATED TO 5LNC DUE TO DESAT LOW 80s WHILE SLEEPING SPO2 CURRENTLY 91% WILL CONTINUE TO MONITOR AND TITRATE TOLERATED
[2021-07-17] VITALS (16 sets, daily range): BP systolic 94–142; BP diastolic 56–99
[2021-07-17] MEDS: CLONIDINE HYDROCHLORIDE 0.1 MG TAB PO SCH ×3 (05:00→16:45)
[2021-07-17] MEDS ORDERED: DEXMEDETOMIDINE HCL 100 MCG/ML 2 ML VIAL IV ONE (05:30)
--- NOTE | 2021-07-17 05:30 | NUR ---
MORNING CARE DONE; KEPT CLEAN DRY AND COMFORTABLE.
[2021-07-17] MEDS: PROPOFOL 1000 MG/100 ML PREMIX 100 ML IV PRN (05:35)
--- NOTE | 2021-07-17 08:00 | NUR ---
glucose check prior to breakfast 124. soft diet tray left at bedside
--- NOTE | 2021-07-17 09:34 | NUR ---
pt finished 75% of meal tray at this time. tolerated meal well.
--- NOTE | 2021-07-17 09:50 | NUR ---
SWITCHED PT TO 5LNC PER DR ORDER FROM HIGH FLOW NC. SAT WAS 99% WHEN WE LEFT. PT WAS IN NO DISTRESS.
[2021-07-17] MEDS: PANTOPRAZOLE 40 MG INJ VIAL IVP SCH (10:15)
[2021-07-17] MEDS: methIMAzole 5 MG TAB NG SCH ×3 (10:19→17:23)
[2021-07-17] MEDS: chlordiazePOXIDE 25 MG CAP PO SCH ×2 (10:20→20:21)
--- NOTE | 2021-07-17 12:29 | NUR ---
lunch tray given at this time.
--- NOTE | 2021-07-17 13:58 | NUR ---
pt assist to bedside commode, soft bowel movement at this time.
--- NOTE | 2021-07-17 14:04 | NUR ---
psych consult with Dez Martin on teleconsult at bedside with pt at this time.
--- NOTE | 2021-07-17 14:20 | NUR ---
Dez Martin on teleconsult verbal order for zyprexa 5mg po q hs. outpatient psychiatry to follow up
--- NOTE | 2021-07-17 14:54 | NUR ---
07/17/21 RD FOLLOW UP COMPLETED PLEASE REFER TO NUTRITION ASSESSMENT UNDER CARE ACTIVITY FOR ESTIMATED NUTRITIONAL NEEDS. 1. CONTINUE SOFT DIET TOLERATED -IF PO INTAKE IS < 75%, RECOMMEND ORAL SUPPLEMENTS 2. RD WILL F/U 3-5 DAYS; MODERATE RISK. BEATRIS OCONNELL, RD
--- NOTE | 2021-07-17 16:30 | NUR ---
RECEIVED REPORT FROM LAKESHA GAO.
--- NOTE | 2021-07-17 19:00 | NUR ---
REPORT GIVEN TO LAKESHA ACOSTA. PATIENT STABLE.
--- NOTE | 2021-07-17 19:15 | NUR ---
ASSUMED CARE OF PT.INITIAL ASSESSMENT COMPLETED.PT AWAKE ALERT AND ORIENTED X3.SR ON MONITOR.ON 02NC AT 2LPM.NO SOB NOTED.INTERMITTENT NON PRODUCTIVE COUGHING NOTED.ON SOFT DIET.PT TOLERATING FOOD AND DRINKS.DENIES N/V.W/HUDDLESTON CATHETER TO BSD DRAINING ADEQUATE AMT OF YELLOW URINE.PT ABLE TO MOVE ALL EXTREMITIES.DENIES PAIN.WILL CONTINUE TO CLOSELY MONITOR PT
[2021-07-17] MEDS ORDERED: OLANZapine 5 MG TAB PO SCH (21:00)
--- NOTE | 2021-07-17 22:00 | NUR ---
VISITED BY FAMILY.UPDATED ON PTS PRESENT CONDITION.QUESTIONS ANSWERED
[2021-07-18] VITALS: BP 114/63
--- NOTE | 2021-07-18 00:39 | NUR ---
PT ASLEEP AT THIS TIME.NO S/SX OF RESPIRATORY DISTRESS NOTED.ABLE TO SELF TURN.AFEBRILE.NO S/SX OF PAIN NOTED
--- NOTE | 2021-07-18 03:53 | NUR ---
PT ASLEEP,EASILY AROUSABLE.DENIES PAIN.NO SOB NOTED ON 02NC AT 2LPM.WILL CONTINUE TO MONITOR PT
[2021-07-18 04:00] VITALS: BP 120/71
--- NOTE | 2021-07-18 05:00 | NUR ---
PT AWAKE; MORNING CARE DONE.DENIES PAIN.DENIES SOB.ABLE TO SELF POSITION
[2021-07-18] MEDS: CLONIDINE HYDROCHLORIDE 0.1 MG TAB PO SCH ×2 (05:19→13:13)
[2021-07-18 05:53] LABS: BASOPHILS % (AUTO) 0.2 % (0.0-2.0); EOSINOPHILS # (AUTO) 0.4 K/uL (0-0.4); EOSINOPHILS % (AUTO) 5.1 % (0.0-4.0); HEMATOCRIT 34.2 % (36-48); HEMOGLOBIN 11.1 g/dL (12.0-16.0); LYMPHOCYTES # (AUTO) 1.6 K/uL (2.5-16.5); LYMPHOCYTES % (AUTO) 22.6 % (20.5-51.1); MEAN CORPUSCULAR HEMOGLOBIN 26 pg (27-31); MEAN CORPUSCULAR HGB CONC 33 g/dL (33-37); MEAN CORPUSCULAR VOLUME 80.8 fL (80-94); MONOCYTES # (AUTO) 1.1 K/uL (0.8-1.0); NEUTROPHILS % (AUTO) 57.1 % (42.2-75.2); PLATELET COUNT (AUTO) 232 K/uL (140-450); RED BLOOD CELL COUNT(AUTO) 4.22 MIL/uL (4.20-5.40); RED CELL DISTRIBUTION WIDTH 14.7 % (11.6-13.7)
[2021-07-18 06:00] VITALS: BP 116/53
[2021-07-18 06:11] LABS: ANION GAP 10.5 (8-16); CARBON DIOXIDE 27.9 mmol/L (21-32); CREATININE 0.2 mg/dL (0.6-1.3); POTASSIUM 3.4 mmol/L (3.5-5.1)
--- NOTE | 2021-07-18 07:50 | NUR ---
REPORT GIVEN TO LEONARDO CROWDER; PT BEING TRANSFERRED BY LAKESHA CONROY CLAIMS AUDITOR TO [facility] VIA WHEELCHAIR.PT ON ROOM AIR.NO SOB NOTED,PERIPHERAL IV ON SALINE LOCK,INTACT,HUDDLESTON CATHETER INTACT. PTS PARENTS IN THE LOBBY AND WANTS TO TALK TO ; INFORMED THE LOBBY STAFF THAT PT IS ON THE WAY TO [facility]
--- NOTE | 2021-07-18 08:00 | NUR ---
RECEIVED PT FROM MANAGER SKILLED, PT IS AOX4, ON ROOM AIR, PT HAS HUDDLESTON CATHETER, IV LINE NOTED ON THE RFA G. 20 ON SALINE LOCK, NO SIGN OF DISTRESS NOTED AND WILL CONTINUE TO MONITOR PT.
[2021-07-18] MEDS: chlordiazePOXIDE 25 MG CAP PO SCH (08:38)
[2021-07-18] MEDS: methIMAzole 5 MG TAB NG SCH ×2 (08:38→13:13)
[2021-07-18] MEDS: PANTOPRAZOLE 40 MG INJ VIAL IVP SCH (08:38)
[2021-07-18] MEDS ORDERED: ATEN25TA7 PO (10:25)
[2021-07-18] MEDS ORDERED: PANT40EC PO (10:25)
[2021-07-18] MEDS ORDERED: OLAN5TAB65 PO (10:25)
[2021-07-18] MEDS ORDERED: LORA-476 PO (10:25)
[2021-07-18] MEDS ORDERED: TAP5 NG/PO (10:25)
--- NOTE | 2021-07-18 10:56 | NUR ---
HUDDLESTON CATHETER WAS REMOVED NOW AND PT WAS INSTRUCTED THAT SHE SHOULD BE ABLE TO VOID NORMALLY WITHIN 6HRS FROM THIS TIME.
--- NOTE | 2021-07-18 10:58 | NUR ---
HUDDLESTON CATHETER DRAINED 1200ML IN BAG.
--- NOTE | 2021-07-18 11:04 | NUR ---
PT WAS BALE TO VOID NORMALLY IN THE BATHROOM NOW.
[2021-07-18 13:13] VITALS: BP 140/74
--- NOTE | 2021-07-18 13:30 | NUR ---
PATIENT DISCHARGE AMBULATORY ACCOMPANIED BY HER MOTHER, WITH DC INSTRUCTION GIVEN AND VERBALIZED UNDERSTANDING. PATIENT IN STABLE CONDITION.
== END 2021-07-18 13:30 | disposition home or self-care (01) | DRG 816 ==
LOC: MED 23:06 → MTU 07-13 04:12 → MIC 07-13 05:30 → MTU 07-18 08:00
PROVIDERS: ADMIT Hospitalist; ATTEND Hospitalist
PROC: 5A1945Z Respiratory Ventilation, 24-96 Consecutive Hours (ICD-10-PCS; principal; 2021-07-12)
PROC: 0BH18EZ Insertion of Endotracheal Airway into Trachea, Via Natural or Artificial Opening Endoscopic (ICD-10-PCS; 2021-07-12)
PROC: 5A0935A Assistance with Respiratory Ventilation, Less than 24 Consecutive Hours, High Flow/Velocity Cannula (ICD-10-PCS; 2021-07-17)
PROC: 0BP1XDZ Removal of Intraluminal Device from Trachea, External Approach (ICD-10-PCS; 2021-07-17)
DX: T51.94XA Toxic effect of unspecified alcohol, undetermined, initial encounter (principal); J96.00 Acute respiratory failure, unspecified whether with hypoxia or hypercapnia; J69.0 Pneumonitis due to inhalation of food and vomit; G93.41 Metabolic encephalopathy; K22.6 Gastro-esophageal laceration-hemorrhage syndrome; F10.129 Alcohol abuse with intoxication, unspecified; F29 Unspecified psychosis not due to a substance or known physiological condition; E05.90 Thyrotoxicosis, unspecified without thyrotoxic crisis or storm; Z20.822 Contact with and (suspected) exposure to COVID-19
CPT/HCPCS: 31500; 36415; 36600; 70450; 71045; 80048; 80053; 80305; 82140; 82803; 83735; 84100; 84439; 84443; 84479; 85025; 87070; 87081; 87186; 87205; 89220; 94002; 94003; 96361; 96374; 96375; 99291; A9153; C9113; G0482; J0696; J2060; J2250; J2270; J2405; J2704; J3010; J3411; J3475; J3490; J7060; Q0092